=== PATIENT | male | born 1990 | race Caucasian/White ===

== ENCOUNTER → 2016-12-20 | Outpatient (CLI) | payer OTHER ==
[~2016-12-20] VITALS: Ht 190.5 cm; Wt 104.3 kg
[~2016-12-20] MED LIST: NS 1,000 ML IV SCH; SIMETHICONE 40MG/0.6ML DROPS 30ML As Ordered ONE; no medications
--- NOTE | 2016-12-20 07:57 | ROOR ---
Patient Name: Flo Garcia Procedure Date: 12/20/2016 7:24 AM Date of : 1990 Age: 26 Room: [facility] Gender: Male Note Status: Finalized Procedure: Colonoscopy Indications: Suspected irritable bowel syndrome, Change in bowel habits Providers: Petros KOWALSKI MD Referring MD: IRAIDA KHOURY MD Requesting Provider: Medicines: Monitored Anesthesia Care Complications: No immediate complications. Procedure: Pre-Anesthesia Assessment: - The heart rate, respiratory rate, oxygen saturations, blood pressure, adequacy of pulmonary ventilation, and response to care were monitored throughout the procedure. The Colonoscope was introduced through the anus and advanced to 5 cm into the ileum. The colonoscopy was performed without difficulty. The patient tolerated the procedure well. The quality of the bowel preparation was adequate. Findings: The perianal exam findings include a small pilonidal cyst. The terminal ileum appeared normal. The entire examined colon appeared normal on direct and retroflexion views. (EXAM: Complete, PREP:Adequate) Impression: - A small pilonidal cyst. found on perianal exam. - The examined portion of the ileum was normal. - The entire examined colon is normal on direct and retroflexion views. - (EXAM: Complete, PREP:Adequate) - No specimens collected. Recommendation: - Use fiber, for example Citrucel, Fibercon, Konsyl or Metamucil. Petros Kowalski MD Petros KOWALSKI MD 12/20/2016 7:56:53 AM This report has been signed electronically. Number of Addenda: 0 Note Initiated On: 12/20/2016 7:24 AM Estimated Blood Loss: Estimated blood loss: none.
[2016-12-20 08:20] VITALS: BP 116/72
== END ==
LOC: M OPP 06:37
PROVIDERS: ATTEND Internal Medicine Gastroenterology
DX: R19.4 Change in bowel habit (principal); K62.89 Other specified diseases of anus and rectum

== ENCOUNTER 2017-06-03 06:08 | Day surgery (SDC) | payer OTHER ==
[~2017-06-03] VITALS: Ht 190.5 cm; Wt 105.0 kg
[2017-06-03] VITALS (8 sets, daily range): BP systolic 113–147; BP diastolic 61–95
[~2017-06-03 06:08] MED LIST changes: -NS 1,000 ML IV SCH; -SIMETHICONE 40MG/0.6ML DROPS 30ML As Ordered ONE
[2017-06-03] MEDS ORDERED: NS 1,000 ML IV SCH (06:50)
[2017-06-03] MEDS ORDERED: MORPHINE 4 MG/ML 1ML SYRINGE IV PRN ×2 (07:00→18:00)
[2017-06-03] MEDS ORDERED: GASTROGRAFIN SOLUTION 30ML PO ONE (07:15)
[2017-06-03 07:23] LABS: BASO % 0.9 % (0.0-1.0); EOS # 0.1 K/mm3 (0.0-0.50); LARGE UNSTAINED CELL # 0.1 K/mm3 (0.0-0.4); LARGE UNSTAINED CELL % 2.5 % (0.0-4.0); LYMPH # 1.6 K/mm3 (1.5-6.5); LYMPH % 36.5 % (24.0-44.0); MEAN CORPUSCULAR HEMOGLOBIN 30.5 pg (27.0-33.0); MEAN CORPUSCULAR HGB CONC 34.7 g/dl (32.0-36.5); MONO # 0.2 K/mm3 (0.0-0.8); MONO % 5.7 % (0.0-5.0); NEUTROPHILS # 2.2 K/mm3 (1.8-7.7); NEUTROPHILS % 51.4 % (36.0-66.0); PLATELET COUNT, AUTOMATED 193 k/mm3 (150-450); RED CELL DISTRIBUTION WIDTH 12.7 % (11.5-14.5); WHITE BLOOD COUNT 4.2 K/mm3 (4.0-10.0)
[2017-06-03] MEDS ORDERED: GASTROGRAFIN SOLUTION 30ML (Q9963) PO ONE (07:45)
[2017-06-03] MEDS ORDERED: ISOVUE-370 76% 100ML VIAL (Q9967) As Ordered ONE (08:47)
[2017-06-03 09:12] LABS: ALBUMIN 3.9 GM/DL (3.2-5.2); ALBUMIN/GLOBULIN RATIO 1.39 (1.00-1.93); ALKALINE PHOSPHATASE 75 U/L (45-117); ALT/SGPT 30 U/L (12-78); ANION GAP 9 MEQ/L (8-16); AST/SGOT 19 U/L (15-37); BILIRUBIN,DIRECT 0.1 MG/DL (0.0-0.2); BILIRUBIN,TOTAL 0.4 MG/DL (0.2-1.0); BLOOD UREA NITROGEN 13 MG/DL (7-18); CARBON DIOXIDE LEVEL 23 MEQ/L (21-32); CHLORIDE LEVEL 105 MEQ/L (98-107); CREATININE FOR GFR 0.95 MG/DL (0.70-1.30); GLOMERULAR FILTRATION RATE > 60.0 (>60); GLUCOSE, FASTING 95 MG/DL (70-105); POTASSIUM SERUM 4.1 MEQ/L (3.5-5.1); SODIUM LEVEL 137 MEQ/L (136-145); TOTAL PROTEIN 6.7 GM/DL (6.4-8.2)
[2017-06-03] MEDS ORDERED: PIPERACILLIN/TAZOBACTAM SOD 4.5 GM in D5W MINI-BAG PLUS 50 ML IV ONE (09:45)
--- NOTE | 2017-06-03 09:47 | REP ---
CT ABDOMEN AND PELVIS WITH IV CONTRAST: TECHNIQUE: Axial contrast enhanced images from the lung bases to the pubic symphysis using 100 mL Isovue 370 intravenous contrast material with multiplanar reformations. The visualized lung bases demonstrate no infiltrate. The liver, spleen, adrenals, pancreas and kidneys are normal in appearance. There is no abdominal aortic aneurysm. There is no free air or free fluid. There is thickening and dilatation of the appendix with surrounding streaky inflammation in the fat. Multiple subcentimeter lymph nodes are seen in the mesentery particularly in the right lower quadrant. No abscess is seen. No pelvic mass is seen. Urinary bladder appears unremarkable. IMPRESSION: Appendicitis. No free air or free fluid. Signed by Eros Horn MD 06/03/2017 03:28 P
[2017-06-03] MEDS ORDERED: LR 1,000 ML IV SCH ×2 (15:30→18:15)
[2017-06-03] MEDS ORDERED: PIPERACILLIN/TAZOBACTAM SOD 3.375 GM in D5W MINI-BAG PLUS 50 ML IV ONE (16:00)
[2017-06-03] MEDS ORDERED: BUPIVACAINE HCL 0.25% 30 ML VIAL As Ordered ONE (16:18)
[2017-06-03] MEDS ORDERED: LIDOCAINE 1% SDV INJ 30 ML VIAL As Ordered ONE (16:18)
[2017-06-03] MEDS ORDERED: fentaNYL 250 MCG/5 ML INJECTION (J3010) As Ordered ONE (16:57)
[2017-06-03] MEDS ORDERED: PROPOFOL 200 MG/20 ML VIAL As Ordered ONE (16:57)
[2017-06-03] MEDS ORDERED: MIDAZOLAM INJ 2 MG/2 ML VIAL (J2250) As Ordered ONE (16:57)
[2017-06-03] MEDS ORDERED: LIDOCAINE 2% JELLY 30 ML As Ordered ONE (16:57)
[2017-06-03] MEDS ORDERED: LIDOCAINE 2% INJ 100 MG/5 ML SDV (FOR ANES.) As Ordered ONE (16:58)
[2017-06-03] MEDS ORDERED: GLYCOPYRROLATE INJ 0.2 MG/ML 2 ML VIAL As Ordered ONE (16:58)
[2017-06-03] MEDS ORDERED: ONDANSETRON 4MG/2ML VIAL (J2405) As Ordered ONE (16:58)
[2017-06-03] MEDS ORDERED: METOCLOPRAMIDE INJ 10MG/2ML VIAL (J2765) As Ordered ONE (16:58)
[2017-06-03] MEDS ORDERED: NEOSTIGMINE 1MG/ML 5 ML SYRINGE (J2710) As Ordered ONE (16:58)
[2017-06-03] MEDS ORDERED: ROCURONIUM BROMIDE 50 MG/5 ML VIAL/SYRINGE As Ordered ONE (16:58)
[2017-06-03] MEDS ORDERED: KETOROLAC 60 MG/2 ML VIAL (J1885) As Ordered ONE (16:58)
[2017-06-03] MEDS ORDERED: DESFLURANE 240 ML INHALANT As Ordered ONE (17:16)
[2017-06-03] MEDS ORDERED: NORCO, ANEXSIA 5/325MG TABLET (HYDROcodone/ACETAMINOPHEN) PO PRN (18:00)
[2017-06-03] MEDS ORDERED: KETOROLAC 30 MG/ML VIAL (J1885) IV PRN (18:00)
[2017-06-03] MEDS ORDERED: ONDANSETRON 4MG/2ML VIAL (J2405) IV PRN ×2 (18:00→18:15)
[2017-06-03] MEDS ORDERED: ACETAMINOPHEN TAB 650MG DOSE (2X325MG) PO PRN (18:00)
[2017-06-03] MEDS ORDERED: METOCLOPRAMIDE INJ 10MG/2ML VIAL (J2765) IV PRN (18:15)
[2017-06-03] MEDS ORDERED: MEPERIDINE INJ 25 MG/ML VIAL (J2175) IV PRN (18:15)
[2017-06-03] MEDS ORDERED: PERCOCET 5MG/325MG TAB PO PRN (18:15)
[2017-06-03] MEDS ORDERED: fentaNYL 100 MCG/2 ML INJECTION (J3010) IV PRN (18:15)
[2017-06-03] MEDS ORDERED: PERCOCET 5MG/325MG TAB As Ordered ONE (18:23)
--- NOTE | 2017-06-03 18:29 | ROOPDOC ---
[facility] Report Of Operation Report of Operation DATE OF PROCEDURE: 06/03/17 PREPROCEDURE DIAGNOSES: Acute Appendicitis. POSTPROCEDURE DIAGNOSES: Acute appendicitis (nonperforated) PROCEDURE: Laparoscopic Appendectomy SURGEON: Santiago Boone MD APPLIED BEHAVIOR SPECIALIST: Gissell Infante MSIII ANESTHESIA: general ESTIMATED BLOOD LOSS: Approximately 20 mL. COMPLICATIONS: none REMARKS: Distal half of appendix inflamed and enlarged, proximal half mildly thickened but healthy, mesoappendix thickened and inflamed, no perforation. DESCRIPTION OF PROCEDURE: Patient received Zosyn 3.375 g IV preoperatively. He was brought to the operating room, laid supine on the table. Compression boots placed for DVT prophylaxis. General endotracheal anesthesia started without any complications. His abdomen then prepped and draped in usual sterile fashion. A surgical timeout performed prior to starting the incision. Entry into the abdomen done through an incision above the umbilicus. Veress needle inserted on a controlled fashion. Intra-abdominal placement confirmed with saline drop technique. CO2 insufflation started to a pressure of 15 mmHg. Using the same incision a 12 mm port was placed under direct vision of laparoscope. Insertion site was inspected for injury and none was found. He was placed on a Trendelenburg position the right side tilted to about 30 to allow for better visualization of the appendix. 2 working ports were placed at the suprapubic area and left lower quadrant area under direct vision. Operative findings: The appendix is noted inflamed and stuck to the lateral sidewall. The lateral half of the appendix is moderately inflamed, thickened along with the mesoappendix she has also thickened. The proximal half is mildly thickened but appears healthy. No obvious perforation noted. Minimal reactive serous fluid in the right gutter. The appendix was located, The Surrounding bowels retracted away from the appendix. This was grasped to pull the base of the appendix into view. The mesoappendix was dissected at the base to create a window. A 45 mm linear stapler with blue load was then used to divide the appendix at the base. The abdomen initial stump appears healthy. There are some scattered oozing along the staple line which was controlled both with a Hemoclip and Bovie cautery. The appendix was further dissected into view the mesial appendix was divided with a vascular load of the 45 mm stapler. There was also scattered oozing along the staple line of the mesoappendix secondary to the inflammation and thickening. Initial attempt at controlling the bleeding with Bovie cautery was not enough to control the oozing. Another load of the vascular stapler was fired , further dividing the mesoappendix. The appendix was then delivered into an Endo Catch bag and retrieved through the umbilical port site. Under insufflation we irrigated at the surgical site and again checked for hemostasis. Further oozing along the staple line was controlled with Bovie cautery as well as hemoclips. Once adequate hemostasis was ensured, remaining irrigation was suctioned off. The abdomen was insufflated all ports were removed. Umbilical fascial defect repaired with a 0 Vicryl in a mattress fashion. All skin incisions closed with 4-0 Monocryl subcutaneous thickening or fashion. Steri-Strips, gauze dressings and Band-Aids used for wound coverage. Patient then promptly awakened and extubated and brought to recovery room stable ABBY BOONE MD Jun 03, 2017 18:29
[2017-06-03] MEDS: NORCO, ANEXSIA 5/325MG TABLET (HYDROcodone/ACETAMINOPHEN) PO PRN (22:46)
[2017-06-03] MEDS: SENOKOT S TAB PO SCH (22:46)
[2017-06-04 04:00] VITALS: BP 121/70
[2017-06-04 06:54] LABS: BASO % 0.5 % (0.0-1.0); EOS # 0.1 K/mm3 (0.0-0.50); EOS % 2.2 % (0.0-3.0); LARGE UNSTAINED CELL # 0.1 K/mm3 (0.0-0.4); LARGE UNSTAINED CELL % 1.8 % (0.0-4.0); LYMPH # 1.7 K/mm3 (1.5-6.5); LYMPH % 32.4 % (24.0-44.0); MEAN CORPUSCULAR HEMOGLOBIN 29.5 pg (27.0-33.0); MEAN CORPUSCULAR HGB CONC 33.4 g/dl (32.0-36.5); MEAN CORPUSCULAR VOLUME 88.4 fl (80.0-96.0); MONO # 0.3 K/mm3 (0.0-0.8); MONO % 5.2 % (0.0-5.0); NEUTROPHILS # 2.9 K/mm3 (1.8-7.7); NEUTROPHILS % 57.9 % (36.0-66.0); PLATELET COUNT, AUTOMATED 196 k/mm3 (150-450); RED CELL DISTRIBUTION WIDTH 12.7 % (11.5-14.5); WHITE BLOOD COUNT 5.1 K/mm3 (4.0-10.0)
[2017-06-04 08:00] VITALS: BP 126/77
[2017-06-04] MEDS: SENOKOT S TAB PO SCH (08:51)
[2017-06-04 12:00] VITALS: BP 131/95
[2017-06-04] MEDS ORDERED: NORCOTAB PO (14:47)
[2017-06-04] MEDS: NORCO, ANEXSIA 5/325MG TABLET (HYDROcodone/ACETAMINOPHEN) PO PRN (14:53)
== END 2017-06-04 15:30 | disposition home or self-care (01) ==
LOC: M ED 06:08 → M SDC 11:16 → M PED 13:55 → M SDC 06-04 15:30
PROVIDERS: ATTEND Surgery
DX: K35.89 Other acute appendicitis (principal)
CPT/HCPCS: 36415; 44970; 74177; 80048; 80076; 83605; 83690; 85025; 87040; 88304; 96365; 96366; 96375; 99284; J1885; J2250; J2405; J2543; J2710; J2765; J3010; Q9963; Q9967

== ENCOUNTER 2018-05-28 14:32 | Emergency (ER) | payer OTHER | END 2018-05-28 15:40 | disposition home or self-care (01) | LOC: M ED 14:32 | DX: S93.401A Sprain of unspecified ligament of right ankle, initial encounter (principal); X50.9XXA Other and unspecified overexertion or strenuous movements or postures, initial encounter; Y92.59 Other trade areas as the place of occurrence of the external cause; Y99.0 Civilian activity done for income or pay | CPT/HCPCS: 73610 ==

== ENCOUNTER 2020-01-21 10:11 | Emergency (ER) | payer OTHER ==
[~2020-01-21] VITALS: Ht 190.5 cm; Wt 113.6 kg
[~2020-01-21 10:11] MED LIST changes: +HYDR-3715 PO
[2020-01-21 10:13] VITALS: BP 142/89
[2020-01-21] MEDS ORDERED: LIDOCAINE 1% SDV 5 ML VIAL DILUENT ONE (10:30)
[2020-01-21] MEDS ORDERED: AZITHROMYCIN 250 MG TAB PO ONE (10:30)
[2020-01-21] MEDS ORDERED: cefTRIAXone SOD 250 MG VIAL (J0696) IM ONE (10:30)
[2020-01-21 11:24] LABS: APPEARANCE, URINE CLEAR (CLEAR)
[2020-01-21 11:25] LABS: BILIRUBIN, URINE AUTO NEGATIVE (NEGATIVE); BLOOD, URINE BLOOD NEGATIVE (NEGATIVE); COLOR, URINE YELLOW (YELLOW); GLUCOSE, URINE (UA) AUTO NEGATIVE (NEGATIVE); KETONE, URINE AUTO NEGATIVE (NEGATIVE); LEUKOCYTE ESTERASE, URINE AUTO NEGATIVE (NEGATIVE); MUCUS, URINE SMALL (NEGATIVE); NITRITE, URINE AUTO NEGATIVE (NEGATIVE); PROTEIN, URINE AUTO NEGATIVE (NEGATIVE); RBC, URINE AUTO 1 /HPF (0-3); SPECIFIC GRAVITY URINE AUTO 1.002 (1.002-1.035); UROBILINOGEN, URINE AUTO 0.2 mg/dL (0.0-2.0)
[2020-01-21 12:42] LABS: CHLAMYDIA DNA AMPLIFICATION NEGATIVE (NEGATIVE); GC DNA AMPLIFICATION NEGATIVE (NEGATIVE)
== END 2020-01-21 10:55 | disposition home or self-care (01) ==
LOC: M ED 10:11
DX: Z20.2 Contact with and (suspected) exposure to infections with a predominantly sexual mode of transmission (principal); F17.200 Nicotine dependence, unspecified, uncomplicated
CPT/HCPCS: 81001; 87491; 87591; 96372; 99284; J0696

== ENCOUNTER → 2020-03-31 | Outpatient (CLI) | payer OTHER | LOC: M SLEEP 20:00 | PROVIDERS: ATTEND Nurse Practitioner Family | DX: R06.83 Snoring (principal) ==

== ENCOUNTER → 2020-05-19 | Outpatient (CLI) | payer OTHER ==
--- NOTE | 2020-05-31 11:36 | SLEEPCENT ---
DATE OF PROCEDURE: 05/19/2020 ORDERED BY: ALLYSSA Humphrey Nocturnal polysomnography was performed for the titration of pressure therapy in this patient with obstructive sleep apnea syndrome. For testing a ResMed AirFit F20 full-face mask of large size was used; 4 cm of water pressure were applied to the circuit and the lights were extinguished. 7 hours and 32 minutes of data were reviewed. There were 416.5 minutes of sleep identified. Sleep latency was mildly prolonged at 16 minutes. Rapid eye movement (REM) latency was normal at 83 minutes. Sleep architecture was good with 4 REM cycles. Overall sleep efficiency was 93.3%. The patient's electrocardiogram showed a sinus rhythm with an average heart rate of 54 beats per minute. Electroencephalogram (EEG) showed normal waveforms for awake and sleep. Respiratory events were best palliated with CPAP at a pressure of +9 and remaining measures of sleep physiology were normal. IMPRESSION: Obstructive sleep apnea syndrome (G47.33). RECOMMENDATIONS: Nightly use of pressure therapy 9 cm of water.
== END ==
LOC: M SLEEP 20:00
PROVIDERS: ATTEND Nurse Practitioner Family
DX: G47.33 Obstructive sleep apnea (adult) (pediatric) (principal)